=== PATIENT | female | born 1970 | race Two or more races ===

== ENCOUNTER 2019-06-13 10:39 | Emergency (ER) | payer OTHER ==
[~2019-06-13] VITALS: Ht 167.6 cm; Wt 86.2 kg
[2019-06-13] MEDS ORDERED: LEXAPRO5 MG (10:57)
[2019-06-13] MEDS ORDERED: LAMICTAL (10:58)
== END 2019-06-13 11:49 | disposition home or self-care (01) ==
LOC: ER 10:39
DX: S50.02XA Contusion of left elbow, initial encounter (principal); W22.8XXA Striking against or struck by other objects, initial encounter; Y93.89 Activity, other specified; Y92.89 Other specified places as the place of occurrence of the external cause; Y99.8 Other external cause status